=== PATIENT | female | born 1995 | race Caucasian/White ===

== ENCOUNTER → 2018-07-02 | Outpatient (CLI) | payer BC, OTHER ==
[~2018-07-02] MED LIST: ALBU90OI INH; AZIT500 PO; CIPDEXSU RIGHTEAR; DULERA 100 MCG/13 GM INH; EMOQUETTE1 EACH PO; PRED20 PO; PROM25 PO; Prednisone20 MG PO; Vibramycin100 MG PO
[2018-07-04 03:12] LABS: CHLAMYDIA TRACHOMATIS, NAA Negative (Negative); NEISSERIA GONORRHOEAE, NAA Negative (Negative)
== END | disposition home or self-care (01) ==
LOC: LAB 14:16 → LAB SHORT 14:16
PROVIDERS: Hospitalist
DX: Z11.3 Encounter for screening for infections with a predominantly sexual mode of transmission (principal); Z12.4 Encounter for screening for malignant neoplasm of cervix
CPT/HCPCS: 87491; 87591; G0145

== ENCOUNTER → 2019-09-08 | Outpatient (CLI) | payer BC ==
[2019-09-11 04:07] LABS: CHLAMYDIA TRACHOMATIS, NAA Negative (Negative); NEISSERIA GONORRHOEAE, NAA Negative (Negative)
== END | disposition home or self-care (01) ==
LOC: LAB SHORT 17:38 → LAB 17:38
PROVIDERS: Hospitalist
DX: Z11.3 Encounter for screening for infections with a predominantly sexual mode of transmission (principal); N39.0 Urinary tract infection, site not specified; A60.00 Herpesviral infection of urogenital system, unspecified
CPT/HCPCS: 87086; 87491; 87529; 87591

== ENCOUNTER → 2020-03-15 | Outpatient (CLI) | payer BC | END | disposition home or self-care (01) | LOC: LAB SHORT 19:03 → LAB 19:03 | DX: R30.0 Dysuria (principal) | CPT/HCPCS: 87086 ==

== ENCOUNTER → 2022-10-30 | Outpatient (CLI) | payer BC | END | disposition home or self-care (01) | LOC: LAB SHORT 11:50 → LAB 11:50 | DX: R35.0 Frequency of micturition (principal) | CPT/HCPCS: 87086 ==

== ENCOUNTER → 2024-02-03 | Outpatient (CLI) | payer BC ==
[2024-02-05 10:32] LABS: APTIMA MEDIA TYPE Urine; C. TRACHOMATIS BY TMA Negative (Negative); N. GONORRHOEAE BY TMA Negative (Negative); SPECIMEN SOURCE Urine
[2024-02-05 13:39] LABS: HIV 1,2 COMBO ANTIGEN/ANTIBODY Negative (Negative)
[2024-02-05 14:27] LABS: HEPATITIS C AB CIA INTERP Negative (Negative)
== END | disposition home or self-care (01) ==
LOC: LAB 13:35 → LAB SHORT 13:35
PROVIDERS: Hospitalist
DX: Z11.3 Encounter for screening for infections with a predominantly sexual mode of transmission (principal)
CPT/HCPCS: 86592; 86803; 87389; 87491; 87591